=== PATIENT | female | born 1960 | race Asian ===

== ENCOUNTER 2018-06-25 14:48 | Inpatient (IN) | payer OTHER ==
[2018-06-25] MEDS ORDERED: ZOLPIDEM 5 MG TAB PO (15:00)
[2018-06-25] MEDS ORDERED: ONDANSETRON 4 MG INJ IV (15:00)
[2018-06-25] MEDS ORDERED: NACL 0.9% 3 ML SYG IV (15:00)
[2018-06-25] MEDS ORDERED: VANCOMYCIN IV PER PHARMACY XX (15:00)
[2018-06-25] MEDS ORDERED: DOCUSATE SODIUM 100 MG CAP PO (15:00)
[2018-06-25] MEDS ORDERED: BISACODYL (EC) 5 MG TAB PO (15:00)
[2018-06-25] MEDS: SOD CHLORIDE 0.9% 1,000 ML IV (16:33)
[2018-06-25] MEDS: ACETAMINOPHEN 325 MG TAB PO (16:39)
[2018-06-25] MEDS: VANCOMYCIN 1 GM 250 ML IVPB (17:01)
[2018-06-25 17:08] LABS: BLOOD UREA NITROGEN 13 mg/dl (7-20)
[2018-06-25] MEDS ORDERED: LIDOCAINE 1% (MPF) 30 ML INJ INJ (17:29)
[2018-06-25] MEDS ORDERED: GLUCAGON 1 MG INJ IM (17:30)
[2018-06-25] MEDS ORDERED: GLUCOSE GEL 15 GRAM TUBE BUCCAL (17:30)
[2018-06-25] MEDS ORDERED: GLUCOSE GEL 15 GRAM TUBE PO ×2 (17:30)
[2018-06-25] MEDS ORDERED: DEXTROSE 50% 50 ML SYRINGE IV ×2 (17:30)
[2018-06-25] MEDS ORDERED: LIDOCAINE 1% (MDV) 20 ML INJ (17:33)
[2018-06-25] MEDS: LIDOCAINE 1% (MDV) 20 ML INJ SC (17:40)
[2018-06-25 17:57] LABS: ERYTHROCYTE SEDIMENTATION RATE 60 mm/Hr (0-30)
[2018-06-25] MEDS: INSULIN ASPART [NOVOLOG] 3 ML PEN SC ×3 (18:05→21:00)
[2018-06-25] MEDS: metFORMIN 500 MG TAB PO (20:05)
[2018-06-25] MEDS: INSULIN GLARGINE [LANTus] (100 UNITS/ML) SYG SC (20:07)
[2018-06-25] MEDS: CHOLESTYRAMINE (LIGHT) 4 GM PACKET PO (20:57)
[2018-06-25] MEDS: HYDROCODONE/APAP (5/325) TAB PO (23:19)
[2018-06-26] MEDS: ACCU-CHEK XX (02:00)
[2018-06-26] MEDS: LEVOFLOXACIN 500 MG TAB PO (05:28)
[2018-06-26] MEDS: VANCOMYCIN 750 MG in SOD CHLORIDE 0.9% 150 ML IVPB ×2 (05:29→18:35)
[2018-06-26 07:29] LABS: ADD MAN DIFF? NO
[2018-06-26 07:36] LABS: BASOPHIL # 0.1 10^3/ul (0.0-0.1); BASOPHILS % 0.9 % (0.0-2.0); EOSINOPHILS # 0.4 10^3/ul (0.0-0.5); EOSINOPHILS % 4.1 % (0.0-7.0); HEMATOCRIT 36.4 % (37.0-47.0); HEMOGLOBIN 11.7 g/dl (12.0-16.0); LYMPHOCYTES # 2.1 10^3/ul (0.8-2.9); LYMPHOCYTES % 21.9 % (15.0-51.0); MEAN CORPUSCULAR HEMOGLOBIN 30.6 pg (29.0-33.0); MEAN CORPUSCULAR HGB CONC 32.1 g/dl (32.0-37.0); MEAN CORPUSCULAR VOLUME 95.3 fl (82.0-101.0); MONOCYTE # 0.9 10^3/ul (0.3-0.9); MONOCYTES % 9.4 % (0.0-11.0); NEUTROPHIL # 5.9 10^3/ul (1.6-7.5); NEUTROPHILS % 63.4 % (39.0-77.0); PLATELET COUNT 353 10^3/UL (140-415); RED BLOOD COUNT 3.82 10^6/ul (4.20-5.40); RED CELL DISTRIBUTION WIDTH 11.9 % (11.5-14.5)
[2018-06-26 07:36] LABS: WHITE BLOOD COUNT 9.3 10^3/ul (4.8-10.8)
[2018-06-26] MEDS: INSULIN ASPART [NOVOLOG] 3 ML PEN SC ×8 (07:58→20:50)
[2018-06-26 08:15] LABS: ANION GAP 7 (5-13); BLOOD UREA NITROGEN 12 mg/dl (7-20); CALCIUM 8.8 mg/dl (8.4-10.2); CARBON DIOXIDE 28 mmol/L (21-31); CHLORIDE 106 mmol/L (97-110); CHOL/HDL RATIO 9.6 RATIO; CHOLESTEROL 242 mg/dl (100-200); CREATININE 0.34 mg/dl (0.44-1.00); Estimated GFR > 60 mL/min (>60); GLUCOSE 120 mg/dl (70-220); HDL CHOLESTEROL 25 mg/dl (35-98); LDL CHOLESTEROL,CALCULATED 195 mg/dl; POTASSIUM 4.8 mmol/L (3.5-5.1); SODIUM 141 mmol/L (135-144); TRIGLYCERIDES 110 mg/dl (0-149)
[2018-06-26] MEDS: metFORMIN 500 MG TAB PO ×2 (08:16→19:48)
[2018-06-26] MEDS: LINAGLIPTIN 5 MG TABLET PO (08:17)
[2018-06-26] MEDS: PIOGLITAZONE 30 MG TAB PO (08:17)
[2018-06-26] MEDS: CHOLESTYRAMINE (LIGHT) 4 GM PACKET PO ×3 (08:17→20:45)
[2018-06-26] MEDS: EZETIMIBE 10 MG TAB PO (08:17)
[2018-06-26] MEDS: EMPAGLIFLOZIN 10 MG TABLET PO (08:17)
[2018-06-26] MEDS: ENOXAPARIN 30 MG/0.3 ML SYG SC (08:26)
[2018-06-26] MEDS: SOD CHLORIDE 0.9% 1,000 ML IV ×2 (09:41→15:59)
[2018-06-26] MEDS: ACETAMINOPHEN 325 MG TAB PO (20:43)
[2018-06-26] MEDS: INSULIN GLARGINE [LANTus] (100 UNITS/ML) SYG SC (20:50)
[2018-06-26] MEDS: HYDROCODONE/APAP (5/325) TAB PO (23:50)
[2018-06-27] MEDS: ACCU-CHEK XX (02:00)
[2018-06-27] MEDS: SOD CHLORIDE 0.9% 1,000 ML IV ×2 (02:34→16:59)
[2018-06-27 06:09] LABS: VANCOMYCIN,TROUGH 7.4 ug/ml (10.0-20.0)
[2018-06-27] MEDS: LEVOFLOXACIN 500 MG TAB PO (06:09)
[2018-06-27] MEDS: VANCOMYCIN 750 MG in SOD CHLORIDE 0.9% 150 ML IVPB ×3 (06:17→21:26)
[2018-06-27] MEDS: INSULIN ASPART [NOVOLOG] 3 ML PEN SC ×7 (08:00→21:00)
[2018-06-27] MEDS: EMPAGLIFLOZIN 10 MG TABLET PO (08:09)
[2018-06-27] MEDS: CHOLESTYRAMINE (LIGHT) 4 GM PACKET PO ×2 (09:00→21:53)
[2018-06-27] MEDS: metFORMIN 500 MG TAB PO ×2 (09:38→18:24)
[2018-06-27] MEDS: EZETIMIBE 10 MG TAB PO (09:38)
[2018-06-27] MEDS: PIOGLITAZONE 30 MG TAB PO (09:38)
[2018-06-27] MEDS: LINAGLIPTIN 5 MG TABLET PO (09:38)
[2018-06-27] MEDS: ENOXAPARIN 30 MG/0.3 ML SYG SC (09:41)
[2018-06-27] MEDS: HYDROCODONE/APAP (5/325) TAB PO (18:26)
[2018-06-27] MEDS: INSULIN GLARGINE [LANTus] (100 UNITS/ML) SYG SC (21:21)
[2018-06-28] MEDS: ACCU-CHEK XX (02:00)
[2018-06-28] MEDS: SOD CHLORIDE 0.9% 1,000 ML IV ×4 (03:33→22:04)
[2018-06-28] MEDS: LEVOFLOXACIN 500 MG TAB PO (05:38)
[2018-06-28] MEDS: VANCOMYCIN 750 MG in SOD CHLORIDE 0.9% 150 ML IVPB ×3 (05:38→21:54)
[2018-06-28 05:54] LABS: BLOOD UREA NITROGEN 11 mg/dl (7-20)
[2018-06-28] MEDS: HYDROCODONE/APAP (5/325) TAB PO ×3 (06:11→23:59)
[2018-06-28 07:12] LABS: CREATININE 0.44 mg/dl (0.44-1.00)
[2018-06-28] MEDS: INSULIN ASPART [NOVOLOG] 3 ML PEN SC ×7 (08:00→21:00)
[2018-06-28] MEDS: PIOGLITAZONE 30 MG TAB PO (08:36)
[2018-06-28] MEDS: EMPAGLIFLOZIN 10 MG TABLET PO (08:36)
[2018-06-28] MEDS: ENOXAPARIN 30 MG/0.3 ML SYG SC (08:36)
[2018-06-28] MEDS: CHOLESTYRAMINE (LIGHT) 4 GM PACKET PO ×3 (08:37→21:54)
[2018-06-28] MEDS: LINAGLIPTIN 5 MG TABLET PO (08:37)
[2018-06-28] MEDS: metFORMIN 500 MG TAB PO ×2 (08:37→18:13)
[2018-06-28] MEDS: EZETIMIBE 10 MG TAB PO (08:40)
[2018-06-28 14:28] LABS: VANCOMYCIN,TROUGH 11.9 ug/ml (10.0-20.0)
[2018-06-28] MEDS: INSULIN GLARGINE [LANTus] (100 UNITS/ML) SYG SC (21:55)
[2018-06-29] MEDS: INSULIN ASPART [NOVOLOG] 3 ML PEN SC ×9 (01:00→20:50)
[2018-06-29] MEDS: ACCU-CHEK XX (02:00)
[2018-06-29] MEDS: VANCOMYCIN 750 MG in SOD CHLORIDE 0.9% 150 ML IVPB ×3 (05:54→21:48)
[2018-06-29] MEDS: LEVOFLOXACIN 500 MG TAB PO (05:54)
[2018-06-29] MEDS: SOD CHLORIDE 0.9% 1,000 ML IV ×3 (06:29→21:48)
[2018-06-29] MEDS: ENOXAPARIN 30 MG/0.3 ML SYG SC (08:11)
[2018-06-29] MEDS: PIOGLITAZONE 30 MG TAB PO (08:12)
[2018-06-29] MEDS: CHOLESTYRAMINE (LIGHT) 4 GM PACKET PO ×2 (08:13→20:48)
[2018-06-29] MEDS: EMPAGLIFLOZIN 10 MG TABLET PO (09:28)
[2018-06-29] MEDS: LINAGLIPTIN 5 MG TABLET PO (09:28)
[2018-06-29] MEDS: EZETIMIBE 10 MG TAB PO (09:30)
[2018-06-29] MEDS: HYDROCODONE/APAP (5/325) TAB PO ×2 (15:29→22:46)
[2018-06-29] MEDS: metFORMIN 500 MG TAB PO ×2 (17:32→20:49)
[2018-06-29] MEDS: INSULIN GLARGINE [LANTus] (100 UNITS/ML) SYG SC (20:50)
[2018-06-30] MEDS: ACCU-CHEK XX (01:32)
[2018-06-30] MEDS: VANCOMYCIN 750 MG in SOD CHLORIDE 0.9% 150 ML IVPB ×3 (05:24→22:04)
[2018-06-30] MEDS: INSULIN ASPART [NOVOLOG] 3 ML PEN SC ×7 (07:35→20:29)
[2018-06-30] MEDS: EMPAGLIFLOZIN 10 MG TABLET PO (08:00)
[2018-06-30 08:39] LABS: ADD MAN DIFF? NO
[2018-06-30] MEDS: LINAGLIPTIN 5 MG TABLET PO (08:40)
[2018-06-30] MEDS: CHOLESTYRAMINE (LIGHT) 4 GM PACKET PO ×2 (08:40→20:36)
[2018-06-30] MEDS: PIOGLITAZONE 30 MG TAB PO (08:40)
[2018-06-30] MEDS: metFORMIN 500 MG TAB PO ×2 (08:40→17:38)
[2018-06-30] MEDS: EZETIMIBE 10 MG TAB PO (08:41)
[2018-06-30 08:47] LABS: WHITE BLOOD COUNT 8.5 10^3/ul (4.8-10.8)
[2018-06-30 08:47] LABS: BASOPHIL # 0.1 10^3/ul (0.0-0.1); BASOPHILS % 1.1 % (0.0-2.0); EOSINOPHILS # 0.4 10^3/ul (0.0-0.5); EOSINOPHILS % 4.5 % (0.0-7.0); HEMATOCRIT 41.5 % (37.0-47.0); HEMOGLOBIN 13.3 g/dl (12.0-16.0); LYMPHOCYTES # 2.6 10^3/ul (0.8-2.9); LYMPHOCYTES % 30.7 % (15.0-51.0); MEAN CORPUSCULAR HEMOGLOBIN 30.5 pg (29.0-33.0); MEAN CORPUSCULAR VOLUME 95.2 fl (82.0-101.0); MEAN PLATELET VOLUME 10.3 fl (7.4-10.4); MONOCYTE # 0.7 10^3/ul (0.3-0.9); MONOCYTES % 8.2 % (0.0-11.0); NEUTROPHIL # 4.7 10^3/ul (1.6-7.5); PLATELET COUNT 551 10^3/UL (140-415); RED BLOOD COUNT 4.36 10^6/ul (4.20-5.40); RED CELL DISTRIBUTION WIDTH 11.7 % (11.5-14.5)
[2018-06-30 09:17] LABS: ANION GAP 9 (5-13); BLOOD UREA NITROGEN 11 mg/dl (7-20); CALCIUM 9.1 mg/dl (8.4-10.2); CARBON DIOXIDE 30 mmol/L (21-31); CHLORIDE 101 mmol/L (97-110); CREATININE 0.37 mg/dl (0.44-1.00); Estimated GFR > 60 mL/min (>60); GLUCOSE 99 mg/dl (70-220); POTASSIUM 4.1 mmol/L (3.5-5.1); SODIUM 140 mmol/L (135-144)
[2018-06-30] MEDS: SOD CHLORIDE 0.9% 1,000 ML IV (09:34)
[2018-06-30] MEDS: ENOXAPARIN 30 MG/0.3 ML SYG SC (09:34)
[2018-06-30] MEDS: HYDROCODONE/APAP (5/325) TAB PO (15:53)
[2018-06-30] MEDS: INSULIN GLARGINE [LANTus] (100 UNITS/ML) SYG SC (20:29)
[2018-07-01] MEDS: ACCU-CHEK XX (02:00)
[2018-07-01] MEDS: HYDROCODONE/APAP (5/325) TAB PO (03:27)
[2018-07-01] MEDS: SOD CHLORIDE 0.9% 1,000 ML IV (03:58)
[2018-07-01] MEDS: VANCOMYCIN 750 MG in SOD CHLORIDE 0.9% 150 ML IVPB ×2 (05:46→14:58)
[2018-07-01] MEDS: INSULIN ASPART [NOVOLOG] 3 ML PEN SC ×8 (07:35→21:00)
[2018-07-01] MEDS: EZETIMIBE 10 MG TAB PO (08:27)
[2018-07-01] MEDS: LINAGLIPTIN 5 MG TABLET PO (08:27)
[2018-07-01] MEDS: PIOGLITAZONE 30 MG TAB PO (08:27)
[2018-07-01] MEDS: CHOLESTYRAMINE (LIGHT) 4 GM PACKET PO ×2 (08:28→20:41)
[2018-07-01] MEDS: metFORMIN 500 MG TAB PO ×2 (08:28→19:05)
[2018-07-01] MEDS: EMPAGLIFLOZIN 10 MG TABLET PO (08:30)
[2018-07-01] MEDS: ENOXAPARIN 30 MG/0.3 ML SYG SC (08:31)
[2018-07-01 14:49] LABS: VANCOMYCIN,TROUGH 13.1 ug/ml (10.0-20.0)
[2018-07-01] MEDS ORDERED: LIDOCAINE 1% (MPF) 5 ML VIAL INJ (18:29)
[2018-07-01] MEDS ORDERED: PROPOFOL 200 MG INJ IV (18:29)
[2018-07-01] MEDS: INSULIN GLARGINE [LANTus] (100 UNITS/ML) SYG SC (20:00)
[2018-07-01] MEDS ORDERED: MEPERIDINE 25 MG INJ IV (22:30)
[2018-07-01] MEDS ORDERED: HYDROmorphONE 1 MG/5 ML IV SYRINGE IV ×2 (22:30)
[2018-07-01] MEDS ORDERED: DIPHENHYDRAMINE 50 MG INJ IV (22:30)
[2018-07-01] MEDS ORDERED: FENTAnyl 50 MCG/ML VIAL IV ×2 (22:30)
[2018-07-01] MEDS ORDERED: ONDANSETRON 4 MG INJ IV (22:30)
[2018-07-01] MEDS ORDERED: METOCLOPRAMIDE 10 MG INJ IV (22:30)
[2018-07-01] MEDS ORDERED: FENTAnyl 50 MCG/ML VIAL (22:32)
[2018-07-01] MEDS ORDERED: MIDAZOLAM 1 MG/ML 2 ML INJ (22:59)
[2018-07-01] MEDS: LIDOCAINE 2% (MDV) 20 ML INJ (23:27)
[2018-07-01] MEDS: HYDROmorphONE 1 MG/5 ML IV SYRINGE IV (23:41)
[2018-07-02] MEDS: VANCOMYCIN 750 MG in SOD CHLORIDE 0.9% 150 ML IVPB ×3 (00:38→17:34)
[2018-07-02] MEDS: INSULIN ASPART [NOVOLOG] 3 ML PEN SC ×8 (00:49→21:00)
[2018-07-02] MEDS: ACCU-CHEK XX (02:00)
[2018-07-02] MEDS: HYDROmorphONE 0.5 MG/0.5 ML SYG IV (03:51)
[2018-07-02] MEDS: SOD CHLORIDE 0.9% 1,000 ML IV ×2 (07:00→09:08)
[2018-07-02] MEDS: CHOLESTYRAMINE (LIGHT) 4 GM PACKET PO ×2 (08:56→21:11)
[2018-07-02] MEDS: LINAGLIPTIN 5 MG TABLET PO (08:56)
[2018-07-02] MEDS: PIOGLITAZONE 30 MG TAB PO (08:57)
[2018-07-02] MEDS: EZETIMIBE 10 MG TAB PO (08:57)
[2018-07-02] MEDS: EMPAGLIFLOZIN 10 MG TABLET PO (08:57)
[2018-07-02] MEDS: metFORMIN 500 MG TAB PO ×2 (08:57→20:17)
[2018-07-02] MEDS: ENOXAPARIN 30 MG/0.3 ML SYG SC (08:58)
[2018-07-02] MEDS: LOSARTAN 50 MG TAB GTB (14:00)
[2018-07-02] MEDS: HYDROCODONE/APAP (5/325) TAB PO (14:08)
[2018-07-02] MEDS: INSULIN GLARGINE [LANTus] (100 UNITS/ML) SYG SC (20:20)
[2018-07-03] MEDS: HYDROCODONE/APAP (5/325) TAB PO (00:24)
[2018-07-03] MEDS: SOD CHLORIDE 0.9% 1,000 ML IV ×3 (00:27→23:09)
[2018-07-03] MEDS: VANCOMYCIN 750 MG in SOD CHLORIDE 0.9% 150 ML IVPB ×3 (01:25→17:28)
[2018-07-03] MEDS: ACCU-CHEK XX (02:00)
[2018-07-03] MEDS ORDERED: ACCU-CHEK XX (02:00)
[2018-07-03 05:43] LABS: ADD MAN DIFF? NO
[2018-07-03 05:46] LABS: BASOPHIL # 0.1 10^3/ul (0.0-0.1); BASOPHILS % 1.3 % (0.0-2.0); EOSINOPHILS # 0.4 10^3/ul (0.0-0.5); EOSINOPHILS % 4.6 % (0.0-7.0); HEMATOCRIT 38.9 % (37.0-47.0); HEMOGLOBIN 12.4 g/dl (12.0-16.0); LYMPHOCYTES # 2.8 10^3/ul (0.8-2.9); LYMPHOCYTES % 34.6 % (15.0-51.0); MEAN CORPUSCULAR HEMOGLOBIN 30.2 pg (29.0-33.0); MEAN CORPUSCULAR HGB CONC 31.9 g/dl (32.0-37.0); MEAN CORPUSCULAR VOLUME 94.6 fl (82.0-101.0); MEAN PLATELET VOLUME 10.1 fl (7.4-10.4); MONOCYTE # 0.8 10^3/ul (0.3-0.9); MONOCYTES % 10.4 % (0.0-11.0); NEUTROPHIL # 3.9 10^3/ul (1.6-7.5); NEUTROPHILS % 48.7 % (39.0-77.0); PLATELET COUNT 538 10^3/UL (140-415); RED BLOOD COUNT 4.11 10^6/ul (4.20-5.40); RED CELL DISTRIBUTION WIDTH 11.8 % (11.5-14.5)
[2018-07-03 06:28] LABS: ANION GAP 9 (5-13); BLOOD UREA NITROGEN 16 mg/dl (7-20); CALCIUM 9.1 mg/dl (8.4-10.2); CARBON DIOXIDE 27 mmol/L (21-31); CHLORIDE 105 mmol/L (97-110); CREATININE 0.43 mg/dl (0.44-1.00); Estimated GFR > 60 mL/min (>60); GLUCOSE 121 mg/dl (70-220); POTASSIUM 4.4 mmol/L (3.5-5.1); SODIUM 141 mmol/L (135-144)
[2018-07-03] MEDS: INSULIN ASPART [NOVOLOG] 3 ML PEN SC ×7 (08:00→21:00)
[2018-07-03] MEDS: EMPAGLIFLOZIN 10 MG TABLET PO (08:11)
[2018-07-03] MEDS: metFORMIN 500 MG TAB PO ×2 (08:30→17:34)
[2018-07-03] MEDS: EZETIMIBE 10 MG TAB PO (08:31)
[2018-07-03] MEDS: CHOLESTYRAMINE (LIGHT) 4 GM PACKET PO ×2 (08:31→21:20)
[2018-07-03] MEDS: PIOGLITAZONE 30 MG TAB PO (08:31)
[2018-07-03] MEDS: LINAGLIPTIN 5 MG TABLET PO (08:31)
[2018-07-03] MEDS: ENOXAPARIN 30 MG/0.3 ML SYG SC (08:32)
[2018-07-03] MEDS: LOSARTAN 50 MG TAB GTB (09:00)
[2018-07-03] MEDS: INSULIN GLARGINE [LANTus] (100 UNITS/ML) SYG SC (20:04)
[2018-07-03] MEDS: HYDROmorphONE 0.5 MG/0.5 ML SYG IV (21:21)
[2018-07-04] MEDS: VANCOMYCIN 750 MG in SOD CHLORIDE 0.9% 150 ML IVPB ×3 (00:46→17:39)
[2018-07-04] MEDS: ACCU-CHEK XX (02:08)
[2018-07-04] MEDS: INSULIN ASPART [NOVOLOG] 3 ML PEN SC ×7 (08:00→21:00)
[2018-07-04] MEDS: EMPAGLIFLOZIN 10 MG TABLET PO (08:03)
[2018-07-04] MEDS: metFORMIN 500 MG TAB PO ×2 (08:20→17:49)
[2018-07-04] MEDS: LINAGLIPTIN 5 MG TABLET PO (08:20)
[2018-07-04] MEDS: PIOGLITAZONE 30 MG TAB PO (08:20)
[2018-07-04] MEDS: ENOXAPARIN 30 MG/0.3 ML SYG SC ×2 (09:00→09:27)
[2018-07-04] MEDS: CHOLESTYRAMINE (LIGHT) 4 GM PACKET PO ×2 (09:26→21:08)
[2018-07-04] MEDS: EZETIMIBE 10 MG TAB PO (09:26)
[2018-07-04] MEDS: SOD CHLORIDE 0.9% 1,000 ML IV ×2 (11:29→17:39)
[2018-07-04] MEDS: HYDROCODONE/APAP (5/325) TAB PO (21:12)
[2018-07-04] MEDS: INSULIN GLARGINE [LANTus] (100 UNITS/ML) SYG SC (21:25)
[2018-07-05] MEDS: ACCU-CHEK XX (00:26)
[2018-07-05] MEDS: VANCOMYCIN 750 MG in SOD CHLORIDE 0.9% 150 ML IVPB ×2 (01:08→09:49)
[2018-07-05] MEDS: INSULIN ASPART [NOVOLOG] 3 ML PEN SC ×7 (08:00→21:00)
[2018-07-05] MEDS: LIDOCAINE 1% (MPF) 5 ML VIAL SC (08:08)
[2018-07-05] MEDS: metFORMIN 500 MG TAB PO ×2 (08:22→18:14)
[2018-07-05] MEDS: LINAGLIPTIN 5 MG TABLET PO (08:22)
[2018-07-05] MEDS: EMPAGLIFLOZIN 10 MG TABLET PO (08:22)
[2018-07-05] MEDS: EZETIMIBE 10 MG TAB PO (08:22)
[2018-07-05] MEDS: PIOGLITAZONE 30 MG TAB PO (08:23)
[2018-07-05] MEDS: ENOXAPARIN 30 MG/0.3 ML SYG SC (08:23)
[2018-07-05 09:19] LABS: VANCOMYCIN,TROUGH 15.8 ug/ml (10.0-20.0)
[2018-07-05] MEDS: CHOLESTYRAMINE (LIGHT) 4 GM PACKET PO ×2 (10:53→21:58)
[2018-07-05] MEDS: SOD CHLORIDE 0.9% 1,000 ML IV ×2 (12:29→18:07)
[2018-07-05] MEDS: VANCOMYCIN 500 MG (PMX) 100 ML IVPB (18:17)
[2018-07-05] MEDS: INSULIN GLARGINE [LANTus] (100 UNITS/ML) SYG SC (22:01)
[2018-07-06] MEDS: ACCU-CHEK XX (01:14)
[2018-07-06] MEDS: VANCOMYCIN 500 MG (PMX) 100 ML IVPB ×3 (02:34→17:35)
[2018-07-06] MEDS: SOD CHLORIDE 0.9% 1,000 ML IV (04:39)
[2018-07-06 07:11] LABS: BLOOD UREA NITROGEN 18 mg/dl (7-20)
[2018-07-06 07:11] LABS: CREATININE 0.36 mg/dl (0.44-1.00)
[2018-07-06] MEDS: INSULIN ASPART [NOVOLOG] 3 ML PEN SC ×6 (08:00→17:34)
[2018-07-06] MEDS: EMPAGLIFLOZIN 10 MG TABLET PO (08:17)
[2018-07-06] MEDS: PIOGLITAZONE 30 MG TAB PO (08:23)
[2018-07-06] MEDS: metFORMIN 500 MG TAB PO ×2 (08:24→17:35)
[2018-07-06] MEDS: LINAGLIPTIN 5 MG TABLET PO (08:24)
[2018-07-06] MEDS: EZETIMIBE 10 MG TAB PO (09:00)
[2018-07-06] MEDS: CHOLESTYRAMINE (LIGHT) 4 GM PACKET PO (09:00)
[2018-07-06] MEDS: ENOXAPARIN 30 MG/0.3 ML SYG SC (09:06)
== END 2018-07-06 20:00 | disposition home health service (06) | DRG 982 ==
LOC: PP2 14:48
PROVIDERS: Internal Medicine
PROC: 0KBT0ZZ Excision of Left Lower Leg Muscle, Open Approach (ICD-10-PCS; principal; 2018-07-01 22:33)
PROC: 0QBH0ZZ Excision of Left Tibia, Open Approach (ICD-10-PCS; 2018-07-01 22:33)
PROC: 02H633Z Insertion of Infusion Device into Right Atrium, Percutaneous Approach (ICD-10-PCS; 2018-07-01 22:33)
DX: E11.622 Type 2 diabetes mellitus with other skin ulcer (principal); L97.929 Non-pressure chronic ulcer of unspecified part of left lower leg with unspecified severity; L03.116 Cellulitis of left lower limb; L02.416 Cutaneous abscess of left lower limb; E11.42 Type 2 diabetes mellitus with diabetic polyneuropathy; E78.5 Hyperlipidemia, unspecified; Z87.891 Personal history of nicotine dependence; B95.61 Methicillin susceptible Staphylococcus aureus infection as the cause of diseases classified elsewhere; M76.62 Achilles tendinitis, left leg
CPT/HCPCS: 36569; 71045; 73590; 73721; 76937; 80048; 80061; 80202; 82565; 82962; 83036; 83735; 84520; 85025; 85651; 86140; 87070; 87116; 88304; 93922

== ENCOUNTER 2018-10-16 13:49 | Day surgery (SDC) | payer OTHER ==
[~2018-10-16 13:49] MED LIST: CEFAZOLIN 1 GM INJ; CEFAZOLIN 2 GM/50 ML (PMX) 50 ML IVPB
[2018-10-16] MEDS ORDERED: SOD CHLORIDE 0.9% 1,000 ML IV (15:30)
[2018-10-16] MEDS ORDERED: PROPOFOL 100 ML (16:10)
[2018-10-16] MEDS ORDERED: FENTAnyl 50 MCG/ML VIAL (16:10)
[2018-10-16] MEDS ORDERED: MIDAZOLAM 1 MG/ML 2 ML INJ (16:10)
[2018-10-16] MEDS: LIDOCAINE 1% (MPF) 30 ML INJ (17:18)
[2018-10-16] MEDS: BUPIVACAINE 0.5% (SDV) 30 ML INJ (17:18)
[2018-10-16] MEDS: POLYMYXIN/BACITRACIN 1L IRRIG (17:19)
[2018-10-16] MEDS ORDERED: METOCLOPRAMIDE 10 MG INJ IV (17:30)
[2018-10-16] MEDS ORDERED: LABETALOL HCL 20MG INJ IV (17:30)
[2018-10-16] MEDS ORDERED: HYDROmorphONE 1 MG/5 ML IV SYRINGE IV ×2 (17:30)
[2018-10-16] MEDS ORDERED: ONDANSETRON 4 MG INJ IV (17:30)
[2018-10-16] MEDS ORDERED: FENTAnyl 50 MCG/ML VIAL IV ×2 (17:30)
[2018-10-16] MEDS ORDERED: hydrALAzine 20 MG INJ IV (17:30)
== END 2018-10-16 18:57 | disposition home or self-care (01) ==
LOC: SDS 13:49
DX: E11.42 Type 2 diabetes mellitus with diabetic polyneuropathy (principal); E11.622 Type 2 diabetes mellitus with other skin ulcer; E11.65 Type 2 diabetes mellitus with hyperglycemia; Z79.4 Long term (current) use of insulin; Z79.84 Long term (current) use of oral hypoglycemic drugs
CPT/HCPCS: 14020; 82962; 87070; 87075; 87102; 88304